=== PATIENT | female | born 1930 | race Caucasian/White ===

== ENCOUNTER 2016-11-09 09:28 | Day surgery (SDC) | payer MEDICARE, OTHER ==
[2016-11-09] MEDS ORDERED: CEFAZOLIN SODIUM 2 GRAM PREMIX 100 ML IV ONE (09:31)
[2016-11-09] MEDS ORDERED: LACTATED RINGERS 1,000 ML ONE (09:32)
[2016-11-09] MEDS ORDERED: IV START KIT ONE (09:32)
[2016-11-09] MEDS ORDERED: CEFAZOLIN SODIUM 2 GRAM PREMIX 100 ML IV SCH (09:45)
[2016-11-09] MEDS ORDERED: FENTANYL 5 ML ONE (12:11)
[2016-11-09] MEDS ORDERED: PROPOFOL 20 ML IV ONE (12:11)
[2016-11-09] MEDS ORDERED: ROCURONIUM BROMIDE 10 MG/ML DOSE IV ONE (12:30)
[2016-11-09] MEDS ORDERED: DEXAMETHASONE SOD PHOS 4 MG/1 ML VIAL ONE (12:30)
[2016-11-09] MEDS ORDERED: ONDANSETRON 4 MG/2ML 2 ML VIAL ONE (12:30)
[2016-11-09] MEDS ORDERED: GLYCOPYRROLATE 0.2 MG/ML 1ML VIAL ONE (12:36)
[2016-11-09] MEDS ORDERED: PHENYLEPHRINE 10 MG/1 ML (1%) VIAL ONE (12:37)
[2016-11-09] MEDS ORDERED: PROMETHAZINE HCL 25 MG/ML VIAL IM PRN (12:52)
[2016-11-09] MEDS ORDERED: ONDANSETRON 4 MG/2ML 2 ML VIAL IV PRN ×2 (12:52→14:33)
[2016-11-09] MEDS ORDERED: ATROPINE SULFATE 0.4 MG/1 ML VIAL IV PRN (12:52)
[2016-11-09] MEDS ORDERED: FENTANYL 100 MCG/2 ML VIAL IV PRN (12:52)
[2016-11-09] MEDS ORDERED: NALOXONE HCL 0.4 MG/ML VIAL IV PRN (12:52)
[2016-11-09] MEDS ORDERED: LACTATED RINGERS 1,000 ML IV SCH (13:00)
[2016-11-09] MEDS ORDERED: ALBUTEROL SULFATE MDI 60 PUFFS/INHALER IH PRN (14:33)
[2016-11-09] MEDS ORDERED: HYDROCODONE/ACETAMINOPHEN 5/325MG TABLET PO PRN (14:33)
[2016-11-09] MEDS ORDERED: ACETAMINOPHEN 325 MG TABLET PO PRN (14:33)
[2016-11-09] MEDS ORDERED: MORPHINE SULFATE 2 MG/ML SYRINGE IV PRN (14:33)
[2016-11-09] MEDS ORDERED: MORPHINE SULFATE 4 MG/ML SYRINGE IV PRN (14:41)
[2016-11-09] MEDS ORDERED: MORPHINE SULFATE 10 MG/ML SYRINGE IV PRN (14:41)
[2016-11-09 15:17] VITALS: BMI 21.7
[2016-11-09] MEDS: LACTATED RINGERS 1,000 ML IV SCH (15:31)
[2016-11-09] MEDS ORDERED: TRAMADOL HCL 50 MG TABLET PO PRN (17:15)
--- NOTE | 2016-11-09 19:46 | OP ---
LOBO AG [id number] DATE OF OPERATION: November 09, 2016 PREOPERATIVE DIAGNOSIS: Pleomorphic invasive lobular carcinoma right breast. POSTOPERATIVE DIAGNOSIS: Pleomorphic invasive lobular carcinoma right breast. PROCEDURE: RIGHT TOTAL MASTECTOMY. SURGEON: Nahum Sotelo M.D. ANESTHESIA: General anesthesia by Vinh Chavez C.R.N.A. INDICATIONS: This is an 86-year-old female with a large right-sided breast cancer. She has a history of a prior lumpectomy and axillary lymph node dissection. The breast is already quite deformed from the tumor. There is one probable lymph node palpable at the low part of the axilla. DESCRIPTION: With informed consent she was taken to the operating room. She was laid supine on the operating room table. General anesthesia was administered. The right breast and axillary region were prepped and draped in a sterile fashion. An elliptical incision was made from the right sternal border out to the chest wall at the base of the axilla. Electrocautery was used to enter the breast capsule. Towel clips were placed. I the breast tissue from the subcutaneous fat superiorly to the level of the clavicle, medially to the sternal border, inferiorly to the inframammary ridge and laterally out the latissimus dorsi. It was taken off the chest well then using electrocautery. It did seem that it was getting to be adherent to the muscle in the mid axillary line on the inferolateral part of the pectoralis major. I did excise some of the muscle with the specimen to attempt to get a negative deep margin. Once the breast was from the chest wall it was labeled with a short stitch superior and a long stitch lateral and handed off to pathology. I did find the one palpable abnormality that looked like a lymph node in the base of the axillary tissue. No other visible lymph nodes were identified. This was sent as a separate specimen to pathology. The wound was irrigated with sterile water. We appeared to have adequate hemostasis. Some of the pectoralis muscle had pulled away from its medial attachments and I did bring some of that back using some #2-0 Vicryl. A #10 Ankit-Osorio drain was placed across the chest wall. The subcutaneous tissues were brought together with running #3-0 Vicryl. Skin was closed with running #4-0 Monocryl. Drain was sutured to the skin with a #2-0 nylon and placed to bulb suction. Sterile dressings were applied. She tolerated the procedure and was taken to the recovery room in stable condition. Note was made that needle, instrument and lap counts were reported as correct at time of closure. Cc: Carlos Fox M.D.
[2016-11-09] MEDS ORDERED: MONTELUKAST SODIUM 10 MG TABLET PO SCH (20:00)
[2016-11-09] MEDS ORDERED: FLUTICASONE/SALMETEROL 250/50 14 PUFFS/DISK IH SCH (21:00)
[2016-11-09] MEDS: CELECOXIB 200 MG CAPSULE PO SCH (21:24)
[2016-11-10] MEDS: LACTATED RINGERS 1,000 ML IV SCH (04:34)
[2016-11-10] MEDS: CELECOXIB 200 MG CAPSULE PO SCH (08:55)
[2016-11-10] MEDS ORDERED: TRAMADOL HCL 50 MG TABLET PO SCH (09:00)
[2016-11-10] MEDS ORDERED: METOPROLOL SUCCINATE (XL) 50 MG TAB.PRT.SR PO SCH (09:00)
[2016-11-10] MEDS ORDERED: POTASSIUM CHLORIDE 20 MEQ TAB.PRT.SR PO SCH (09:00)
[2016-11-10] MEDS ORDERED: VALSARTAN 80 MG TABLET PO SCH (09:00)
[2016-11-10] MEDS ORDERED: ASPIRIN (ENTERIC COATED) 81 MG TABLET.EC PO SCH (09:00)
[2016-11-10] MEDS ORDERED: AMLODIPINE 5MG PO SCH (09:00)
[2016-11-10] MEDS ORDERED: FLUTICASONE/SALMETEROL 250/50 14 PUFFS/DISK IH SCH (13:00)
[2016-11-10 15:27] VITALS: BP 111/54
--- NOTE | 2016-11-12 15:45 | SURGPATH ---
[facility] 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 The prior lumpectomy with axillary node dissection and radiation of right breast 1998 Specimen Source / Surgical Procedure Performed: #1 right breast cancer, #2 right axillary lymph node HIGH PRIORITY DIAGNOSIS. REQUIRES CLINICAL ATTENTION Interpretation: 1. BREAST, RIGHT, SIMPLE MASTECTOMY: - INVASIVE PLEOMORPHIC LOBULAR CARCINOMA, GRADE 2 - STAGE: pT2, pN0 (BASED ON SINGLE AXILLARY LYMPH NODE) - SEE SYNOPTIC REPORT 2. LYMPH NODE, RIGHT AXILLARY, BIOPSY: - SINGLE NEGATIVE LYMPH NODE (0/1) BREAST CANCER CASE SUMMARY: SPECIMEN IDENTIFICATION: Right breast, simple mastectomy, without sentinel node, with single lymph node TUMOR SITE: Deep central to lateral breast involving both outer quadrants TUMOR SIZE: Dimension of largest focus of invasion: 4.5 cm TUMOR FOCALITY: Single focus of invasive carcinoma HISTOLOGIC TYPE: Invasive pleomorphic lobular TNM DESCRIPTORS: Not applicable (remote history of invasive ductal carcinoma, [id number]) PRIMARY TUMOR STAGE: pT2: Tumor >20 mm but d50 mm in greatest dimension REGIONAL LYMPH NODE STAGE: pN0: No regional lymph node metastasis identified histologically based on single lymph node CHIKI COMBINED HISTOLOGIC GRADE: Grade 2 (Total score 7) TUBULE FORMATION: Minimal - less than 10% (score=3) NUCLEAR PLEOMORPHISM: Marked variation in size (score=3) MITOTIC RATE: Score=1 SKIN INVOLVEMENT: Not involved SKELETAL MUSCLE INVOLVEMENT: Not involved ASSOCIATED DUCTAL CARCINOMA IN SITU: DCIS is not present 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 MARGINS: Margins uninvolved by invasive carcinoma: Distance from closest margin: 3.0 mm Distance from anterosuperior margin: 30.0 mm Distance from anteroinferior margin: 5.0 mm Distance from posterior margin: 3.0 mm Distance from medial margin: Over 50.0 mm Distance from lateral margin: 30.0 mm LYMPH NODES: Total nodes involved: Total nodes examined (including sentinel nodes): (0/1) Total sentinel nodes involved / Total sentinel nodes examined: Not applicable Number of lymph nodes with macrometastases (>2.0 mm): 0 Number of lymph nodes with micrometastases (>0.2 mm to 2.0 mm): 0 Number of lymph nodes with isolated tumor cells (d0.2 mm): 0 RESPONSE TO PRESURGICAL THERAPY IN THE BREAST AND LYMPH NODES: No known recent presurgical therapy (remote history of lumpectomy, axillary lymph node dissection and radiation to the right breast, 1998) LYMPH VASCULAR INVASION: Not identified DERMAL LYMPH VASCULAR INVASION: Not identified MICROCALCIFICATIONS: Not Identified ANCILLARY STUDIES: ER: 70% moderate intensity, Positive (Estrogen receptor clone [id number]) PgR: 0% Percent, Negative (Progesterone receptor clone 16) HER2: Negative (score 1+) (IHC, clone [id number]) Performed on prior case [id number] ADDITIONAL PATHOLOGIC FINDINGS: none Electronically Signed Out Iza Alejandro M.D. Gross Description: 1. The specimen is received in formalin labeled with the patient's name and "right breast". MASTECTOMY (GROSS EXAMINATION) SPECIMEN: Fixation: The intact specimen was fixed in formalin for 24 hours. The cut specimen was fixed in formalin for six hours. Tissue(s) included: Breast tissue/simple mastectomy Dimensions: 15 cm from medial to lateral, 13 cm from superior to inferior, up to 7 cm from anterior to posterior Dimension/description of skin: The ellipse of ashley skin is 17.5 x 8.5 cm with a 1.0 x 0.8 x 0.2 cm raised unremarkable nipple. Weight: 286 g Orientation: Short-superior, long-lateral Margin designation: anterior superior blue, anterior inferior green, posterior/deep - black TUMOR: Size/description: The deep central and lateral breast is involved with a diffuse vague indurated white hard mass with hemorrhage. The mass is ill-defined and by palpation is approximately 4.5 x 4.5 x 4.5 cm. Quadrant location: Involving both outer quadrants extending from 1.5 cm deep to the skin to the deep margin Relation to and involvement of surgical margin: Likely involves the puckered and indurated deep margin and possibly involves core is very close to the anterior-inferior margin. The anterior-superior margin and lateral tip is approximately 3 cm in the medial tip is >5 cm. Other: The breast is vaguely diffusely indurated. The remaining cut surface is fatty. AXILLARY CONTENTS: Prior axillary node dissection in 1998. TISSUES SUBMITTED FOR MICROSCOPIC EVALUATION: 1A perpendicular sections of nipple 1B en face deep to nipple 1C upper inner quadrant with anterior-superior margin >2 cm from mass 1D lower inner quadrant with anterior-inferior margin >2 cm from mass 1E possible tumor deep to nipple >2 cm from margins, 1.5 cm from skin 1F medial aspect of mass including deep margin 1G anterior-superior margin near mass Cross section of mass: 1H-1J anterior aspect (H skin without margin, no other margins included) 1K-M deep aspect (K includes anterior-inferior margin and 8:00 skin margin, L-M include deep margin) 1N additional anterior-inferior margin with skin, approximately 7:00 2. The specimen is received in formalin labeled with the patient's name and "right axillary lymph node". The specimen consists of a 1.5 x 1.5 x 0.5 cm indurated possible lymph node. The specimen is sectioned perpendicular to the long axis and entirely submitted in one cassette. ERICK Domínguez Microscopic Description: 1. A pleomorphic lobular carcinoma comes to within 3 mm of the deep and 5 mm of the anteroinferior margins. In situ lobular carcinoma involves lactiferous ducts. Refer to the synoptic report for further details. 2. The single axillary node is examined in leveled sections and with immunostaining for AE1/AE3 and shows no metastatic disease. (Analyte-specific reagents (ASR) are used in many laboratory tests necessary for standard medical care and generally do not require FDA approval. This test was developed and its performance characteristics determined by [facility]. It has not been cleared or approved by the U.S. Food and Drug Administration. [facility] is certified under the Clinical Laboratory Improvement Amendments of 1988 as qualified to perform high complexity clinical laboratory testing. All controls stain as expected.) 1: 31333, 3260F 2: 68617, 90880 C50.811
== END 2016-11-10 16:20 | disposition home or self-care (01) ==
LOC: SDC 09:28 → MS 14:44 → SDC 11-10 16:20
PROVIDERS: ATTEND Surgery
PROC: 0HTT0ZZ Resection of Right Breast, Open Approach (ICD-10-PCS; principal; 2016-11-09)
PROC: 07B80ZX Excision of Right Internal Mammary Lymphatic, Open Approach, Diagnostic (ICD-10-PCS; 2016-11-09)
DX: C50.111 Malignant neoplasm of central portion of right female breast (principal); R59.1 Generalized enlarged lymph nodes; Z17.1 Estrogen receptor negative status [ER-]; J43.9 Emphysema, unspecified; I10 Essential (primary) hypertension; I25.10 Atherosclerotic heart disease of native coronary artery without angina pectoris; Z88.2 Allergy status to sulfonamides; Z79.82 Long term (current) use of aspirin
CPT/HCPCS: 19307; 94010; A9270 ×7; J3010; J1100; J2370; J2405; J7120; J0690